=== PATIENT | male | born 1990 | race Hispanic/Latino ===

== ENCOUNTER 2016-10-17 22:21 | Emergency (ER) | payer MEDICARE, MEDICAID, BC ==
--- NOTE | 2016-10-17 22:56 | EDM.PDOC ---
ED HPI GENERAL MEDICAL PROBLEM - General Chief Complaint: General Stated Complaint: suicide ideations Time Seen by Provider: 10/17/16 22:49 Source of Information: Reports: Patient History Limitations: Reports: No Limitations - History of Present Illness INITIAL COMMENTS - FREE TEXT/NARRATIVE: PT PRESENTS WITH COUNTER DISH [employer]RIER FOR CONCERN OF SUICIDAL IDEATION. PT WAS UPSET THIS EVENING AND TEXTED HIS MOTHER STATD HE WANTED TO JUST . MOTHER CONTACTED LOCAL POLICE AND PT WAS FOUND IN HIS VEHICLE, PARKED ON SIDE OF ROAD. JUST FINISHED SESSION AT [facility] LAST WEEK. PT STATES TO ME HE IS NOT GOING TO KILL HIMSELF BUT WAS JUST UPSET AND LASHING OUT. JUST WANTS TO BE LEFT ALONE. DENIES DRUG OR ALCOHOL USE. Onset: Today Improves with: Reports: None Worsens with: Reports: None Associated Symptoms: Reports: No Other Symptoms - Related Data Allergies Allergy/AdvReac Type Severity Reaction Status Date / Time Dust Allergy Mild Sneezing Uncoded 10/17/16 22:29 Mold Allergy Mild Sneezing Uncoded 10/17/16 22:29 Home Meds: Home Meds Acetaminophen/Diphenhydramine [Tylenol Pm Ex-Strength Caplet] 1 tab PO BEDTIME PRN 09/09/14 [History] Carvedilol 25 mg PO BID 11/14/14 [History] Isosorbide Mononitrate [Imdur] 30 mg PO TID 11/14/14 [History] amLODIPine Besylate [Amlodipine Besylate] 10 mg PO DAILY 11/14/14 [History] cloNIDine HCl [Catapres] 0.2 mg PO TID 11/14/14 [History] hydrALAZINE [Apresoline] 100 mg PO TID 11/14/14 [History] Allopurinol 100 mg PO DAILY 06/04/16 [History] Calcium Carbonate [Tums] 200 mg PO ASDIRECTED PRN 06/04/16 [History] Sevelamer Carbonate [Renvela] 800 mg PO TID 06/04/16 [History] diphenhydrAMINE HCl/Zinc Acet [Benadryl Itch Stopping Crm] 1 applic TOP BID PRN 06/04/16 [History] Past Medical History Cardiovascular History: Reports: Hypertension, Other (See Below) Other Cardiovascular History: Left arm with fistula for dialysis Gastrointestinal History: Reports: Other (See Below) Other Gastrointestinal History: occ heartburn Genitourinary History: Reports: Chronic Renal Insuffiency, Renal Disease, Other (See Below) Other Genitourinary History: Dialysis Mon- Musculoskeletal History: Reports: Fracture Other Musculoskeletal History: hand R Neurological History: Reports: Other (See Below) Other Neuro History: occ GUERRERO - adonis when BP is high "front to the back of my head " Psychiatric History: Reports: Anxiety Dermatologic History: Reports: Other (See Below) Other Dermatologic History: current rash - Past Surgical History Cardiovascular Surgical History: Reports: Other (See Below) Other Cardiovascular Surgeries/Procedures: Left arm with fistula Male Surgical History: Reports: Other (See Below) Social & Family History - Family History Family Medical History: Unobtainable - Tobacco Use Smoking Status *Q: Former Smoker Years of Tobacco use: 5 Packs/Tins Daily: 0.1 Used Tobacco, but Quit: Yes Month Tobacco Last Used: "It's been awhile." Second Hand Smoke Exposure: No - Caffeine Use Caffeine Use: Reports: None - Alcohol Use Days Per Week of Alcohol Use: 1 Number of Drinks Per Day: 0 Total Drinks Per Week: 0 - Recreational Drug Use Recreational Drug Use: Yes Drug Use in Last 12 Months: Yes Recreational Drug Type: Reports: Marijuana/Hashish, Other (see below) Recreational Drug Use Frequency: Not Used In Over 3 Months Recreational Drug Last Use: frequent - Living Situation & Occupation Living situation: Reports: Single Occupation: Unemployed ED ROS GENERAL - Review of Systems Review Of Systems: ROS reveals no pertinent complaints other than HPI. Constitutional: Reports: No Symptoms HEENT: Reports: No Symptoms Respiratory: Reports: No Symptoms Cardiovascular: Reports: No Symptoms GI/Abdominal: Reports: No Symptoms : Reports: No Symptoms Musculoskeletal: Reports: No Symptoms Skin: Reports: No Symptoms Neurological: Reports: No Symptoms Psychiatric: Reports: Agitation, Depression, Suicidal Ideation Hematologic/Lymphatic: Reports: No Symptoms Immunologic: Reports: No Symptoms ED EXAM, GENERAL - Physical Exam Exam: See Below Exam Limited By: No Limitations General Appearance: Alert, WD/WN, No Apparent Distress Throat/Mouth: Normal Inspection, Normal Oropharynx, No Airway Compromise Respiratory/Chest: No Respiratory Distress, Normal Breath Sounds Cardiovascular: Regular Rate, Rhythm, No Murmur GI/Abdominal: Normal Bowel Sounds, Soft Back Exam: Normal Inspection Extremities: Normal Inspection Neurological: Alert, Oriented, Normal Cognition Psychiatric: Normal Affect, Normal Mood Skin Exam: Warm, Dry, Intact, Normal Color, No Rash Lymphatic: No Adenopathy Course - Vital Signs Last Recorded V/S: Last Vital Signs Temp 98.0 F 10/17/16 22:34 Pulse 106 H 10/17/16 22:34 Resp 20 10/17/16 22:34 BP 194/126 H 10/17/16 22:34 Pulse Ox 95 10/17/16 22:34 - Re-Assessments/Exams Free Text/Narrative Re-Assessment/Exam: 10/17/16 23:03 CONCERNS WERE DISCUSSED WITH ASA FROM [facility]. HE FELT PATIENT WAS A RISK TO SELF AND FELT HE NEEDED TO BE BROUGHT THERE FOR EVALUATION. Free Text/Narrative Re-Assessment/Exam: 10/17/16 23:04 PT AFEBRILE, NONTOXIC APPEARING, DEPRESSED BUT ACTING APPROPRIATE TOWARD STAFF AND POLICE. PT ACCEPTED AND WILL BE TRANSFERED TO [facility] BY POLICE 10/17/16 23:42 Free Text/Narrative Re-Assessment/Exam: 10/17/16 23:41 PT IS MEDICALLY CLEARED FOR TRANSFER TO [facility] Departure - Departure Time of Disposition: 23:43 Disposition: DC/Tfer to [facility] Hosp[facility]Unit [facility] Condition: Fair Clinical Impression: Suicidal ideation - Discharge Information Forms: ED Department Discharge Additional Instructions: PT IS MEDICALLY CLEARED FOR TRANSFER TO [facility] - Assessment/Plan Assessment:: SUICIDAL IDEATION Plan: TRANSFER TO [facility]
[2016-10-17 23:40] VITALS: BP 195/115
== END 2016-10-17 23:52 ==
LOC: KA.ED 22:21
DX: R45.851 Suicidal ideations (principal); I10 Essential (primary) hypertension; N18.9 Chronic kidney disease, unspecified; F41.9 Anxiety disorder, unspecified; Z87.891 Personal history of nicotine dependence; Z79.899 Other long term (current) drug therapy
CPT/HCPCS: 99285

== ENCOUNTER 2017-06-27 18:27 | Emergency (ER) | payer MEDICAID, MEDICARE ==
[2017-06-27] MEDS ORDERED: Zolpidem 5 MG Tab PO ONE (19:24)
--- NOTE | 2017-06-27 19:31 | EDM.PDOC ---
ED HPI GENERAL MEDICAL PROBLEM - General Chief Complaint: General Stated Complaint: ANXIETY Time Seen by Provider: 06/27/17 19:24 Source of Information: Reports: Patient History Limitations: Reports: No Limitations - History of Present Illness INITIAL COMMENTS - FREE TEXT/NARRATIVE: Patient is a 26-year-old gentleman who presents to the emergency department this evening with a complaint of insomnia. Patient states that he broke up with his girlfriend last week and has had trouble sleeping the last 4 nights. He is currently on renal dialysis 3 times per week, and the time is changed from afternoon to morning. He used to sleep mornings and go to dialysis in the afternoon, but now dialysis in the morning and is not getting a good night sleep. Poor sleeping habits to include trying to fall asleep at approximately 230 in the morning, tossing and turning, and falling falling asleep between 5 and 6. He then only gets about 3 hours sleep and has dialysis at 9 a.m.. Patient denies chest pain, shortness of breath, vision changes, drug use, caffeine, stimulants, or alcohol. Onset: Gradual Duration: Day(s): Severity: Mild Improves with: Reports: None Worsens with: Reports: None Associated Symptoms: Reports: No Other Symptoms Lower Posterior Head Pain Score (Numeric/FACES): 8 - Related Data Allergies Allergy/AdvReac Type Severity Reaction Status Date / Time Dust Allergy Mild Sneezing Uncoded 10/17/16 22:29 Mold Allergy Mild Sneezing Uncoded 10/17/16 22:29 Home Meds: Home Meds Acetaminophen/Diphenhydramine [Tylenol Pm Ex-Strength Caplet] 1 tab PO BEDTIME PRN 09/09/14 [History] Carvedilol 25 mg PO BID 11/14/14 [History] Isosorbide Mononitrate [Imdur] 30 mg PO TID 11/14/14 [History] amLODIPine Besylate [Amlodipine Besylate] 10 mg PO DAILY 11/14/14 [History] cloNIDine HCl [Catapres] 0.3 mg PO TID 11/14/14 [History] hydrALAZINE [Apresoline] 100 mg PO TID 11/14/14 [History] Allopurinol 100 mg PO BID 06/04/16 [History] Calcium Carbonate [Tums] 200 mg PO ASDIRECTED PRN 06/04/16 [History] Sevelamer Carbonate [Renvela] 800 mg PO TID 06/04/16 [History] diphenhydrAMINE HCl/Zinc Acet [Benadryl Itch Stopping Crm] 1 applic TOP BID PRN 06/04/16 [History] Prazosin [Minpress] 1 mg PO BID 10/17/16 [History] Past Medical History Cardiovascular History: Reports: Hypertension, Other (See Below) Other Cardiovascular History: Left arm with fistula for dialysis Gastrointestinal History: Reports: Other (See Below) Other Gastrointestinal History: occ heartburn Genitourinary History: Reports: Chronic Renal Insuffiency, Renal Disease, Other (See Below) Other Genitourinary History: Dialysis Mon- Musculoskeletal History: Reports: Fracture Other Musculoskeletal History: hand R Neurological History: Reports: Other (See Below) Other Neuro History: occ GUERRERO - adonis when BP is high "front to the back of my head " Psychiatric History: Reports: Anxiety Dermatologic History: Reports: Other (See Below) Other Dermatologic History: current rash - Past Surgical History Cardiovascular Surgical History: Reports: Other (See Below) Other Cardiovascular Surgeries/Procedures: Left arm with fistula Male Surgical History: Reports: Other (See Below) Social & Family History - Family History Family Medical History: Unobtainable - Tobacco Use Smoking Status *Q: Former Smoker Years of Tobacco use: 5 Packs/Tins Daily: 0.1 Used Tobacco, but Quit: Yes Month Tobacco Last Used: "It's been awhile." Second Hand Smoke Exposure: No - Caffeine Use Caffeine Use: Reports: None - Alcohol Use Days Per Week of Alcohol Use: 1 Number of Drinks Per Day: 0 Total Drinks Per Week: 0 - Recreational Drug Use Recreational Drug Use: Yes Drug Use in Last 12 Months: Yes Recreational Drug Type: Reports: Marijuana/Hashish, Other (see below) Recreational Drug Use Frequency: Not Used In Over 3 Months Recreational Drug Last Use: frequent - Living Situation & Occupation Living situation: Reports: Single Occupation: Unemployed ED ROS GENERAL - Review of Systems Review Of Systems: ROS reveals no pertinent complaints other than HPI. Constitutional: Reports: No Symptoms HEENT: Reports: No Symptoms Respiratory: Reports: No Symptoms Cardiovascular: Reports: No Symptoms Endocrine: Reports: No Symptoms GI/Abdominal: Reports: No Symptoms : Reports: No Symptoms Musculoskeletal: Reports: No Symptoms Skin: Reports: No Symptoms Neurological: Reports: No Symptoms Psychiatric: Reports: Agitation, Anxiety, Other (insomnia). Denies: Depression , Homicidal Ideation, Suicidal Ideation Hematologic/Lymphatic: Reports: No Symptoms Immunologic: Reports: No Symptoms ED EXAM, GENERAL - Physical Exam Exam: See Below Exam Limited By: No Limitations General Appearance: Alert, WD/WN, No Apparent Distress Eye Exam: Bilateral Eye: Normal Inspection Throat/Mouth: Normal Inspection, Normal Oropharynx, No Airway Compromise Head: Atraumatic, Normocephalic Neck: Normal Inspection, Supple, Non-Tender Respiratory/Chest: No Respiratory Distress, Lungs Clear, Normal Breath Sounds, No Accessory Muscle Use, Chest Non-Tender Cardiovascular: Regular Rate, Rhythm, No Murmur Extremities: Normal Inspection Neurological: Alert, Oriented, CN II-XII Intact, Normal Cognition, No Motor/ Sensory Deficits Psychiatric: Normal Affect, Normal Mood Skin Exam: Warm, Dry, Intact, Normal Color, No Rash Lymphatic: No Adenopathy Course - Vital Signs Last Recorded V/S: Last Vital Signs Temp Pulse Resp 18 06/27/17 18:36 BP Pulse Ox - Orders/Labs/Meds Meds: Medications Discontinued Medications Generic Name Dose Route Start Last Admin Trade Name Freq PRN Reason Stop Dose Admin Zolpidem Tartrate 10 mg 06/27/17 19:24 Ambien PO 06/27/17 19:25 ONETIME ONE - Re-Assessments/Exams Free Text/Narrative Re-Assessment/Exam: 06/27/17 19:35 Patient afebrile, nontoxic appearing, vital signs stable, mother at bedside. Patient seems very stable, and will try him on Ambien this evening. Patient will follow-up at [facility] tomorrow Departure - Departure Time of Disposition: 19:36 Disposition: Home, Self-Care 01 Condition: Good Clinical Impression: Insomnia due to anxiety and fear - Discharge Information Instructions: Insomnia Referrals: Diego Marks MD [Primary Care Provider] - Forms: ED Department Discharge Additional Instructions: Follow-up at [facility] tomorrow. Return to emergency department sooner if symptoms continue or worsen. - Assessment/Plan Assessment:: Insomnia Plan: Patient will follow-up with PCP in 2-3 days
[2017-06-27 19:52] VITALS: BP 155/72
== END 2017-06-27 19:52 | disposition home or self-care (01) ==
LOC: KA.ED 18:27
DX: F51.05 Insomnia due to other mental disorder (principal); I12.9 Hypertensive chronic kidney disease with stage 1 through stage 4 chronic kidney disease, or unspecified chronic kidney disease; N18.9 Chronic kidney disease, unspecified; Z91.048 Other nonmedicinal substance allergy status; Z79.899 Other long term (current) drug therapy; Z87.891 Personal history of nicotine dependence
CPT/HCPCS: 99282; 99283; A9270-GY

== ENCOUNTER 2017-08-01 07:15 | Emergency (ER) | payer MEDICARE, BC, OTHER ==
--- NOTE | 2017-08-01 08:21 | EDM.PDOC ---
ED HPI GENERAL MEDICAL PROBLEM - General Chief Complaint: General Time Seen by Provider: 08/01/17 07:49 Source of Information: Reports: Patient, Family (mom) History Limitations: Reports: No Limitations - History of Present Illness INITIAL COMMENTS - FREE TEXT/NARRATIVE: Patient presents with anxiety symptoms after taking Nyquil at 0530 and then his regular medications at 0600 today. He has frequent, sudden, compelling urges to move and jerk his body one way or the other. He has had this in the past and it has been related to dreams that awaken him at night. He hasn't had them for quite awhile before today and he thinks it is from the Nyquil today. He also had his usual kidney dialysis yesterday (Monday), per his routine. He often feels restless and can't sleep after dialysis but last night he says he slept well, even without his Ambien. He several blood pressure medications and has renal failure, all diagnosed in the last 5 years. He sees a certified orthoptist in [place] regularly. He says he hasn't seen his PCP, Dr. Meza for quite awhile. He hasn't had a psych evaluation. He denies street drug use but has smoked marijuana in the remote past. Treatments [employer] WORK[employer]: Reports: Other Medication(s) - Related Data Allergies Allergy/AdvReac Type Severity Reaction Status Date / Time Dust Allergy Mild Sneezing Uncoded 08/01/17 07:39 Mold Allergy Mild Sneezing Uncoded 08/01/17 07:39 Home Meds: Home Meds Carvedilol 25 mg PO BIDMEALS 11/14/14 [History] Isosorbide Mononitrate [Imdur] 30 mg PO TID 11/14/14 [History] amLODIPine Besylate [Amlodipine Besylate] 10 mg PO DAILY 11/14/14 [History] cloNIDine HCl [Catapres] 0.3 mg PO TID 11/14/14 [History] hydrALAZINE [Apresoline] 100 mg PO TID 11/14/14 [History] Allopurinol 100 mg PO BID 06/04/16 [History] Sevelamer Carbonate [Renvela] 800 mg PO TIDMEALS 06/04/16 [History] Prazosin [Minpress] 1 mg PO BID 10/17/16 [History] Zolpidem Tartrate [Ambien] 10 mg PO BEDTIME 08/01/17 [History] Past Medical History Cardiovascular History: Reports: Hypertension, Other (See Below) Other Cardiovascular History: Left arm with fistula for dialysis Respiratory History: Reports: None Gastrointestinal History: Reports: Other (See Below) Other Gastrointestinal History: occ heartburn Genitourinary History: Reports: Chronic Renal Insuffiency, Renal Disease, Other (See Below) Other Genitourinary History: Dialysis Mon- Musculoskeletal History: Reports: Fracture Other Musculoskeletal History: hand R Neurological History: Reports: Other (See Below) Other Neuro History: occ GUERRERO - adonis when BP is high "front to the back of my head " Psychiatric History: Reports: Anxiety Dermatologic History: Reports: Other (See Below) Other Dermatologic History: current rash - Past Surgical History Cardiovascular Surgical History: Reports: Other (See Below) Other Cardiovascular Surgeries/Procedures: Left arm with fistula Male Surgical History: Reports: Other (See Below) Social & Family History - Family History Family Medical History: Unobtainable - Tobacco Use Smoking Status *Q: Never Smoker Years of Tobacco use: 5 Packs/Tins Daily: 0.1 Used Tobacco, but Quit: Yes Month/Year Tobacco Last Used: "It's been awhile." Second Hand Smoke Exposure: No - Caffeine Use Caffeine Use: Reports: None - Alcohol Use Days Per Week of Alcohol Use: 1 Number of Drinks Per Day: 0 Total Drinks Per Week: 0 - Recreational Drug Use Recreational Drug Use: Yes Drug Use in Last 12 Months: No Recreational Drug Type: Reports: Marijuana/Hashish, Other (see below) Recreational Drug Use Frequency: Not Used In Over 3 Months Recreational Drug Last Use: frequent - Living Situation & Occupation Living situation: Reports: Single Occupation: Unemployed ED ROS GENERAL - Review of Systems Review Of Systems: See Below Constitutional: Denies: Fever, Malaise, Weakness HEENT: Denies: Ear Pain, Throat Pain, Vision Change Respiratory: Denies: Shortness of Breath, Cough Cardiovascular: Denies: Chest Pain, Lightheadedness, Syncope Endocrine: Reports: No Symptoms GI/Abdominal: Reports: Nausea. Denies: Abdominal Pain, Constipation, Diarrhea, Vomiting : Denies: Dysuria, Flank Pain, Frequency Musculoskeletal: Denies: Neck Pain, Shoulder Pain, Arm Pain, Back Pain Skin: Denies: Cyanosis, Jaundice, Mottled, Pallor, Diaphoresis Neurological: Denies: Confusion, Dizziness, Seizure, Syncope, Trouble Speaking, Difficulty Walking Psychiatric: Reports: Agitation, Anxiety, Other (He denies hallucinations but that is what he appears to be experiencing; he describes it as a shock going through his body whenever he tries to lay back, no pain just a shock that compels him to jolt into a lateral recumbent position; this happens whenever he tries to lay back and frequently even when already in the recumbent position). Denies: Hallucinations ED EXAM, GENERAL - Physical Exam Exam: See Below Exam Limited By: No Limitations General Appearance: Alert, WD/WN, Anxious (very), Other (occasional involuntary spasms and twitches) Eye Exam: Bilateral Eye: EOMI, Normal Inspection, PERRL Ears: Normal External Exam, Hearing Grossly Normal Nose: Normal Inspection, No Blood Throat/Mouth: Normal Inspection, Normal Lips, Normal Voice, No Airway Compromise Head: Atraumatic, Normocephalic Neck: Normal Inspection, Full Range of Motion Respiratory/Chest: No Respiratory Distress, Lungs Clear, Normal Breath Sounds, No Accessory Muscle Use Cardiovascular: Regular Rate, Rhythm (was originally tachy but not on EKG or during my exam), No Edema, No Gallop, No Murmur GI/Abdominal: Normal Bowel Sounds, Soft, Non-Tender, No Organomegaly, No Distention, No Abnormal Bruit, No Mass Back Exam: Normal Inspection, Full Range of Motion. No: CVA Tenderness (L), CVA Tenderness (R) Extremities: Normal Inspection, Normal Range of Motion, Non-Tender, No Pedal Edema Neurological: Alert, Oriented, Normal Cognition, No Motor/Sensory Deficits Psychiatric: Anxious, Other (unusual, irrational behavior) Skin Exam: Warm, Dry, Intact, Normal Color, No Rash Course - Vital Signs Last Recorded V/S: Last Vital Signs Temp 100.0 F 08/01/17 08:58 Pulse 84 08/01/17 08:58 Resp 18 08/01/17 08:58 BP 145/96 H 08/01/17 08:58 Pulse Ox 98 08/01/17 08:58 - Orders/Labs/Meds Orders: Active Orders 24 hr Category Date Time Status EKG Documentation Completion [RC] ASDIRECTED Care 08/01/17 07:51 Active DRUG SCREEN, URINE [URCHEM] Stat Lab 08/01/17 08:12 Ordered UA W/MICROSCOPIC [URIN] Stat Lab 08/01/17 08:09 Ordered Labs: Laboratory Tests 08/01/17 08/01/17 08/01/17 Range/Units 08:15 08:15 08:20 WBC 9.3 (5.0-10.0) 10^3/uL RBC 5.02 (4.50-6.00) 10^6/uL Hgb 13.4 (13.0-17.0) g/dL Hct 41.8 (40.0-52.0) % MCV 83.4 D (82.0-92.0) fL MCH 26.6 L (27.0-31.0) pg MCHC 31.9 L (32.0-36.0) g/dL RDW 12.4 (11.5-14.5) % Plt Count 282 (150-300) 10^3/uL MPV 7.6 (7.4-10.4) fL Neut % (Auto) 72.3 H (50.0-70.0) % Lymph % (Auto) 16.2 L (20.0-40.0) % [place] % (Auto) 7.4 (2.0-8.0) % Eos % (Auto) 3.1 H (1.0-3.0) % Baso % (Auto) 1.0 (0.0-1.0) % Neut # (Auto) 6.7 (2.5-7.0) 10^3/uL Lymph # (Auto) 1.5 (1.0-4.0) 10^3/uL Overton # (Auto) 0.7 (0.1-0.8) 10^3/uL Eos # (Auto) 0.3 (0.1-0.3) 10^3/uL Baso # (Auto) 0.1 (0.0-0.1) 10^3/uL Sodium (136-145) mmol/L Potassium (3.3-5.3) mmol/L Chloride (98-115) mmol/L Carbon Dioxide (21.0-32.0) mmol/L BUN (6-25) mg/dL Creatinine (0.51-1.17) mg/dL Est Cr Clr Drug Dosing mL/min Estimated GFR (MDRD) mL/min Glucose (70-110) mg/dL Calcium (8.7-10.3) mg/dL Specimen Type Urincc Urine Color Yellow (YELLOW) Urine Appearance Clear (CLEAR) Urine pH 8.5 (5.0-9.0) Ur Specific [place] 1.015 (1.005-1.030) Urine Protein >=300 H (NEGATIVE) mg/dL Urine Glucose (UA) 250 H (NEGATIVE) mg/dL Urine Ketones Negative (NEGATIVE) mg/dL Urine Occult Blood Negative (NEGATIVE) Urine Nitrite Negative (NEGATIVE) Urine Bilirubin Negative (NEGATIVE) Urine Urobilinogen 0.2 (0.2-1.0) E.U./dL Ur Leukocyte Esterase Negative (NEGATIVE) Urine RBC 0-5 /HPF Urine WBC 0-5 /HPF Ur Epithelial Cells Not seen /LPF Other Crystals Not seen /HPF Urine Bacteria Not seen (NONE TO FEW) /HPF Urine Opiates Screen Negative (NEGATIVE) Ur Oxycodone Screen Negative (NEGATIVE) Urine Methadone Screen Negative (NEGATIVE) Ur Propoxyphene Screen Negative (NEGATIVE) Ur Barbiturates Screen Negative (NEGATIVE) Ur Tricyclics Screen Negative (NEGATIVE) Ur Phencyclidine Scrn Negative (NEGATIVE) Ur Amphetamine Screen Negative (NEGATIVE) U Methamphetamines Scrn Negative (NEGATIVE) U Benzodiazepines Scrn Negative (NEGATIVE) U Cocaine Metab Screen Negative (NEGATIVE) U Marijuana (THC) Screen Negative (NEGATIVE) Ethyl Alcohol (0-3) mg/dL 08/01/17 08/01/17 Range/Units 08:20 08:20 WBC (5.0-10.0) 10^3/uL RBC (4.50-6.00) 10^6/uL Hgb (13.0-17.0) g/dL Hct (40.0-52.0) % MCV (82.0-92.0) fL MCH (27.0-31.0) pg MCHC (32.0-36.0) g/dL RDW (11.5-14.5) % Plt Count (150-300) 10^3/uL MPV (7.4-10.4) fL Neut % (Auto) (50.0-70.0) % Lymph % (Auto) (20.0-40.0) % [place] % (Auto) (2.0-8.0) % Eos % (Auto) (1.0-3.0) % Baso % (Auto) (0.0-1.0) % Neut # (Auto) (2.5-7.0) 10^3/uL Lymph # (Auto) (1.0-4.0) 10^3/uL [place] # (Auto) (0.1-0.8) 10^3/uL Eos # (Auto) (0.1-0.3) 10^3/uL Baso # (Auto) (0.0-0.1) 10^3/uL Sodium 141 (136-145) mmol/L Potassium 3.9 (3.3-5.3) mmol/L Chloride 101 (98-115) mmol/L Carbon Dioxide 27.6 (21.0-32.0) mmol/L BUN 29 H D (6-25) mg/dL Creatinine 5.19 H (0.51-1.17) mg/dL Est Cr Clr Drug Dosing 17.21 mL/min Estimated GFR (MDRD) 13 mL/min Glucose 77 (70-110) mg/dL Calcium 9.5 (8.7-10.3) mg/dL Specimen Type Urine Color (YELLOW) Urine Appearance (CLEAR) Urine pH (5.0-9.0) Ur Specific [place] (1.005-1.030) Urine Protein (NEGATIVE) mg/dL Urine Glucose (UA) (NEGATIVE) mg/dL Urine Ketones (NEGATIVE) mg/dL Urine Occult Blood (NEGATIVE) Urine Nitrite (NEGATIVE) Urine Bilirubin (NEGATIVE) Urine Urobilinogen (0.2-1.0) E.U./dL Ur Leukocyte Esterase (NEGATIVE) Urine RBC /HPF Urine WBC /HPF Ur Epithelial Cells /LPF Other Crystals /HPF Urine Bacteria (NONE TO FEW) /HPF Urine Opiates Screen (NEGATIVE) Ur Oxycodone Screen (NEGATIVE) Urine Methadone Screen (NEGATIVE) Ur Propoxyphene Screen (NEGATIVE) Ur Barbiturates Screen (NEGATIVE) Ur Tricyclics Screen (NEGATIVE) Ur Phencyclidine Scrn (NEGATIVE) Ur Amphetamine Screen (NEGATIVE) U Methamphetamines Scrn (NEGATIVE) U Benzodiazepines Scrn (NEGATIVE) U Cocaine Metab Screen (NEGATIVE) U Marijuana (THC) Screen (NEGATIVE) Ethyl Alcohol < 3 (0-3) mg/dL - Re-Assessments/Exams Free Text/Narrative Re-Assessment/Exam: 08/01/17 09:57 Labs reviewed. UDS and Etoh negative. Discussed with Trip Gonzalez NP who knows the patient from clinic. He recommends informing Dr. Nichols (nephrology ) as she likes to be informed with her patients. She is not motel front desk clerk but her partner, Dr. Hernandez feels this is not related to dialysis or renal function. 08/01/17 11:03 Dr. Nichols called back and visited with me on a 3-way call with Kate, the dialysis nurse. Kate shared that the patient has told her he sometimes takes his ambien more often than prescribed because he likes how it makes him feel, however he tells me that he never takes it more than once a day as prescribed. Patient is feeling much better and the spasms have nearly stopped. Discussed all this with Dr. Nichols and together we decided that the best recommendation is for the patient to be transferred to [place] [facility] where he can be evaluated emergently by psych as outpatient it may take up to a month. I discussed this with patient and his mother; the patient thinks this is definitely a side effect of taking the Nyquil and is feeling improved enough that he wants to go home. I don't feel this is an unreasonable decision and am leaving it up to the patient to decide. He has improved significantly while in the ER for the past 3 hours. Will discharge to home with follow up tomorrow with PCP and early follow up with nephrology and psych. 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 Drink water as allowed with your kidney disease and dialysis. 2. Take your medications as directed. 3. Follow up with ISIDRO Ugalde tomorrow as scheduled; discuss possibility of pshychiatric referral. 4. Call your certified orthoptist and follow up as she advises. - My Orders Last 24 Hours: My Active Orders 08/01/17 07:51 EKG Documentation Completion [RC] ASDIRECTED 08/01/17 08:09 UA W/MICROSCOPIC [URIN] Stat 08/01/17 08:12 DRUG SCREEN, URINE [URCHEM] Stat - Assessment/Plan Last 24 Hours: My Active Orders 08/01/17 07:51 EKG Documentation Completion [RC] ASDIRECTED 08/01/17 08:09 UA W/MICROSCOPIC [URIN] Stat 08/01/17 08:12 DRUG SCREEN, URINE [URCHEM] Stat
[2017-08-01 08:59] VITALS: BP 145/96
== END 2017-08-01 11:05 | disposition home or self-care (01) ==
LOC: KA.ED 07:15
DX: F41.9 Anxiety disorder, unspecified (principal); R25.2 Cramp and spasm; I12.9 Hypertensive chronic kidney disease with stage 1 through stage 4 chronic kidney disease, or unspecified chronic kidney disease; N18.9 Chronic kidney disease, unspecified; Z91.048 Other nonmedicinal substance allergy status; Z79.899 Other long term (current) drug therapy; Z87.891 Personal history of nicotine dependence
CPT/HCPCS: 36415; 80048; 80305; 81001; 85025; 93005; 99284; G0480

== ENCOUNTER 2022-04-07 08:49 | Emergency (ER) | payer MEDICARE, BC ==
[2022-04-07 09:10] VITALS: BP 168/119
[2022-04-07 09:35] LABS: ANION GAP 20.1 mmol/L (5-15)
[2022-04-07 09:44] LABS: CORONAVIRUS COVID-19 NAA NEGATIVE (NEGATIVE); RESPIRATORY SYNCYTIAL VIR NAA POSITIVE (NEGATIVE)
[2022-04-07] MEDS ORDERED: Albuterol/Ipratropium 3.0-0.5 MG/3 ML Neb Soln NEB ONE (09:52)
[2022-04-07 10:17] VITALS: PULSE 91
== END 2022-04-07 10:45 | disposition home or self-care (01) ==
LOC: KA.ED 08:49
DX: R06.2 Wheezing (principal); B97.4 Respiratory syncytial virus as the cause of diseases classified elsewhere; Z79.899 Other long term (current) drug therapy; Z91.048 Other nonmedicinal substance allergy status; Z20.822 Contact with and (suspected) exposure to COVID-19
CPT/HCPCS: 0241U; 36415; 71045; 80048; 83605; 85025; 94640; 99284; 99285; J7620-GY

== ENCOUNTER 2022-04-08 08:51 | Emergency (ER) | payer MEDICARE, BC ==
[2022-04-08] MEDS ORDERED: Albuterol 0.083% 2.5 MG/3 ML Neb Soln NEB ONE (09:02)
[2022-04-08] MEDS ORDERED: predniSONE 20 MG Tab PO ONE (10:21)
[2022-04-08 10:27] VITALS: BP 176/127; PULSE 88
== END 2022-04-08 10:47 | disposition home or self-care (01) ==
LOC: KA.ED 08:51
DX: R06.02 Shortness of breath (principal); R06.2 Wheezing; B97.4 Respiratory syncytial virus as the cause of diseases classified elsewhere; I10 Essential (primary) hypertension; Z91.048 Other nonmedicinal substance allergy status; Z79.899 Other long term (current) drug therapy
CPT/HCPCS: 36415; 71046; 80048; 83605; 84100; 85025; 99284; J7512; J7613-GY

== ENCOUNTER 2022-04-13 00:18 | Emergency (ER) | payer MEDICARE, BC ==
[2022-04-13] MEDS: LORazepam 0.5 MG Tab PO ONE (00:41)
[2022-04-13 01:24] LABS: ANION GAP 18.9 mmol/L (5-15); CHLORIDE,CL 94 mmol/L (98-107); ESTIMATED GFR 6 mL/min (>=60); SODIUM,NA 137 mmol/L (136-145)
[2022-04-13 07:26] VITALS: PULSE 83
[2022-04-13 07:27] VITALS: BP 207/133
== END 2022-04-13 01:50 | disposition home or self-care (01) ==
LOC: KA.ED 00:18
DX: F41.9 Anxiety disorder, unspecified (principal); I12.9 Hypertensive chronic kidney disease with stage 1 through stage 4 chronic kidney disease, or unspecified chronic kidney disease; N18.6 End stage renal disease; Z99.2 Dependence on renal dialysis; Z91.048 Other nonmedicinal substance allergy status; Z79.899 Other long term (current) drug therapy
CPT/HCPCS: 36415; 71046; 80053; 85025; 99284; 99285; A9270-GY

== ENCOUNTER 2023-01-12 00:31 | Emergency (ER) | payer MEDICARE, BC ==
[2023-01-12] MEDS: Sodium Chloride 0.9% 10 ML Syringe FLUSH PRN (01:00)
[2023-01-12 01:30] LABS: APPEARANCE,URINE CLEAR (CLEAR); BILIRUBIN,URINE NEGATIVE (NEGATIVE); COLOR,URINE YELLOW (YELLOW); GLUCOSE,URINE 500 mg/dL (NEGATIVE); KETONES,URINE NEGATIVE (NEGATIVE); LEUKOCYTE ESTERASE,URINE NEGATIVE (NEGATIVE); NITRITE,URINE NEGATIVE (NEGATIVE); OCCULT BLOOD,URINE MODERATE (NEGATIVE); PROTEIN,URINE 100 mg/dL (NEGATIVE); UROBILINOGEN,URINE 0.2 E.U./dL (0.2-1.0)
[2023-01-12 01:35] LABS: ANION GAP 15.8 mmol/L (5-15); BLOOD UREA NITROGEN,BUN 27 mg/dL (7-18); CALCIUM 9.5 mg/dL (8.7-10.3); CARBON DIOXIDE,CO2 21.7 mmol/L (21.0-32.0); CHLORIDE,CL 97 mmol/L (98-107); CREATININE 2.08 mg/dL (0.51-1.17); GLUCOSE RANDOM 147 mg/dL (70-140); POTASSIUM,K 3.5 mmol/L (3.5-5.1); SODIUM,NA 131 mmol/L (136-145)
[2023-01-12 01:39] LABS: ESTIMATED GFR 42 mL/min (>=60)
[2023-01-12 01:41] LABS: BASOPHILS ABSOLUTE AUTO 0.02 10^3/uL (0.00-0.10); BASOPHILS PERCENT AUTO 0.3 % (0.0-1.0); EOSINOPHILS PERCENT AUTO 4.7 % (1.0-3.0); HEMOGLOBIN 14.2 g/dL (13.0-17.0); IMMATURE GRAN ABSOLUTE AUTO 0.01 10^3/uL (0.00-0.50); IMMATURE GRAN PERCENT AUTO 0.2 % (0.0-5.0); LYMPHOCYTES ABSOLUTE AUTO 0.88 10^3/uL (1.00-4.00); LYMPHOCYTES PERCENT AUTO 13.7 % (20.0-40.0); MEAN CORPUSCULAR HEMOGLOBIN 28.3 pg (27.0-31.0); MEAN CORPUSCULAR VOLUME 85.8 fL (82.0-92.0); MEAN PLATELET VOLUME 10.7 fL (7.4-10.4); MONOCYTES ABSOLUTE AUTO 0.87 10^3/uL (0.10-0.80); MONOCYTES PERCENT AUTO 13.5 % (2.0-8.0); NEUTROPHILS ABSOLUTE AUTO 4.35 10^3/uL (2.50-7.00); NEUTROPHILS PERCENT AUTO 67.6 % (50.0-70.0); PLATELET COUNT,PLT 99 10^3/uL (150-400); RED BLOOD CELL COUNT 5.01 10^6/uL (4.50-6.00); RED CELL DISTRIBUTION WIDTH 12.3 % (11.5-14.5); WHITE BLOOD CELL COUNT,WBC 6.43 10^3/uL (5.00-10.00)
[2023-01-12 01:46] LABS: BACTERIA,URINE OCCASIONAL /HPF (NONE TO FEW); EPITHELIAL CELLS,URINE OCCASIONAL /LPF; MUCUS,URINE OCCASIONAL /LPF (NEGATIVE); WBC,URINE 0-5 /HPF (0-5)
[2023-01-12] MEDS: Doxazosin 2 MG Tab PO ONE (02:07)
[2023-01-12 03:10] VITALS: BP 175/136; PULSE 74
== END 2023-01-12 02:27 | disposition home or self-care (01) ==
LOC: KA.ED 00:31 → SUPCPDRO 00:31 → KA.ED 02:27
DX: I12.9 Hypertensive chronic kidney disease with stage 1 through stage 4 chronic kidney disease, or unspecified chronic kidney disease (principal); N18.9 Chronic kidney disease, unspecified; I25.2 Old myocardial infarction; Z94.0 Kidney transplant status; Z99.2 Dependence on renal dialysis; Z20.822 Contact with and (suspected) exposure to COVID-19; Z79.899 Other long term (current) drug therapy; Z91.048 Other nonmedicinal substance allergy status
CPT/HCPCS: 36415; 71045; 80048; 81001; 85025; 93005; 99284; U0002; J3490